=== PATIENT | male | born 1965 | race Caucasian/White ===

== ENCOUNTER 2018-05-22 09:14 | Day surgery (SDC) | payer OTHER ==
[~2018-05-22] VITALS: Ht 177.8 cm; Wt 125.2 kg
[~2018-05-22 09:14] MED LIST: ALLOPURINOL100 MG PO; LEVOTHYROXINE112 MCG PO; LEVOTHYROXINE125 MCG PO; LIPITOR10 MG PO; LOSARTAN-HCTZ1 EACH PO; METFORMIN HCL500 MG PO; METOPROLOL TART50 MG PO; PERCOCET 5-3251 EACH PO; TOPROL XL100 MG PO
--- NOTE | 2018-05-22 10:44 | NUR ---
05/22/18 1044 Ashlee Braswell 1041 PT ARRIVED IN PACU SLEEPY WITH NO C/O'S. ABD SOFT.
--- NOTE | 2018-05-22 11:53 | OR ---
[facility] [address] [place], [place] [address] Signed DATE OF OPERATION: 05/22/2018 SURGEON: Maria A Palmer MD PREOPERATIVE DIAGNOSES: 1. Screening. 2. Mother with diverticulitis requiring resection. POSTOPERATIVE DIAGNOSES: 1. Moderate left-sided diverticulosis. 2. 4 mm polyp at mid right colon. 3. 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 PROCEDURES: Colonoscopy with hot biopsy and random cold biopsies. ESTIMATED BLOOD LOSS: None. INDICATIONS: Tanya is a 52-year-old gentleman, who has been to his primary care provider. He was asked to see me for a routine screening colonoscopy at age 52. He said he has no lower GI complaints. He said his family has no history of colon cancer or polyps. He describes his mother having severe sigmoid diverticular disease requiring an elective Rachel's resection and in about a year later got reversed. In the office, I gave Tanya a pamphlet on colonoscopy and we looked at that together along with the risks and benefits. He understands there is risk including, but not limited to gas, bloating, crampy abdominal pain, bleeding, perforation, requiring surgery, and missed diagnosis. We also discussed the need for IV conscious sedation. He had expressed understanding and wished to proceed. PROCEDURE NOTE: Tanya was taken into our endoscopy suite and placed in the left lateral decubitus position. He was given a total of 7 mg of Versed and 150 mcg of fentanyl to cover the case. A digital rectal exam was performed and this was unremarkable. He had good sphincter tone. The bottom of his prostate was a little indurated, but otherwise unremarkable. The adult colonoscope was introduced and advanced all the way around into the cecum under direct visualization of camera without difficulty. His prep was good. The scope was slowly withdrawn. We took pictures throughout for photodocumentation. He had a single 4 mm polyp in his mid right colon. It was easily removed and destroyed Electronically Signed By: MARIA A PALMER MD 05/22/18 1153 PATIENT NAME: TANYA SANCHEZ OPERATIVE REPORT DATE OF : 69 REPORT #: [id number] PHYSICIAN: MARIA A PALMER MD PCP: REGINALD POTTER DO REPORT IS CONFIDENTIAL AND NOT TO BE RELEASED WITHOUT AUTHORIZATION [facility] [address] [place], [place] [address] Signed completely with hot biopsy forceps. We thought he might have just some mild tiger striping in the colon, so we went ahead and took a couple of random cold biopsies to rule out melanosis coli. Also, he does have moderate left-sided diverticulosis. They are moderate size, moderate number, and scattered about. The rectum itself was unremarkable. Upon retroflexion of scope, he really has no additional pathology noted above the anal canal. After this, the gas was suctioned out and the colonoscope removed. Tanya tolerated the procedure quite well. RECOMMENDATIONS: I will see Tanya back in my office in 7 to 14 days to review his results. Maria A Palmer MD ALB/MODL /[id number] cc: MD Reginald Pena DO Copies: MARIA A PALMER MD, ARIAN DO ~ Electronically Signed By: MARIA A PALMER MD 05/22/18 1153 PATIENT NAME: TANYA SANCHEZ OPERATIVE REPORT DATE OF : 69 REPORT #: [id number] PHYSICIAN: MARIA A PALMER MD PCP: REGINALD POTTER DO REPORT IS CONFIDENTIAL AND NOT TO BE RELEASED WITHOUT AUTHORIZATION
== END 2018-05-22 11:25 | disposition home or self-care (01) ==
LOC: DS 09:14 → OPS 09:14 → DS 10:15 → OPS 10:15
PROC: 0DBK8ZZ Excision of Ascending Colon, Via Natural or Artificial Opening Endoscopic (ICD-10-PCS; principal; 2018-05-22)
PROC: 0DBE8ZX Excision of Large Intestine, Via Natural or Artificial Opening Endoscopic, Diagnostic (ICD-10-PCS; 2018-05-22)
DX: Z12.11 Encounter for screening for malignant neoplasm of colon (principal); D12.2 Benign neoplasm of ascending colon; K63.89 Other specified diseases of intestine; K57.30 Diverticulosis of large intestine without perforation or abscess without bleeding; I25.2 Old myocardial infarction; I10 Essential (primary) hypertension; E78.5 Hyperlipidemia, unspecified; E03.9 Hypothyroidism, unspecified; E11.9 Type 2 diabetes mellitus without complications; E66.9 Obesity, unspecified; Z79.899 Other long term (current) drug therapy; Z79.84 Long term (current) use of oral hypoglycemic drugs; Z88.8 Allergy status to other drugs, medicaments and biological substances; Z88.1 Allergy status to other antibiotic agents; Z88.0 Allergy status to penicillin; Z83.71 Family history of colonic polyps; Z68.39 Body mass index [BMI] 39.0-39.9, adult
CPT/HCPCS: J2250; J3010; J7120

== ENCOUNTER 2022-04-05 08:53 | Day surgery (SDC) | payer OTHER ==
[~2022-04-05] VITALS: Ht 175.3 cm; Wt 120.5 kg
[~2022-04-05 08:53] MED LIST changes: +LEVOFLOXACIN500 MG PO
[2022-04-05] MEDS ORDERED: METHIMAZOLE5 MG PO (09:10)
[2022-04-05] MEDS ORDERED: TRULICITY0.75 MG/0. SQ (09:10)
--- NOTE | 2022-04-05 14:37 | NUR ---
04/05/22 1437 Kathrin Beltre 1422-PATIENT ARRIVED TO PACU ON 6L MASK RR EVEN. PATIENT REACTIVE TO VERBAL STIMULI OPENING EYES HOB ELEVATED. PATIENT DENIES MPAIN OR NAUSEA. GINGER DRAIN TO NECK DRESSING INTACT. PATIENT REMAINS VERY SWEATY COLD AIR VIA SONYA PAWS APPLIED. 1433-DISCUSSED WITH DR BACH OF GINGER DRAIN NOT HOLDING SUCTION. ORDER TO PLACE TO WALL SUCTION. GINGER DRAIN CONNECTED TO MEDIUM CONTINUOUS WALL SUCTION. SANGUINOUS DRAINAGE.
--- NOTE | 2022-04-05 15:41 | NUR ---
PATIENT BROUGHT TO MED SURG FLOOR FROM PACU. PATIENT RESTING IN BED, HEAD ELEVATED. STATES PAIN 3/10. PT HAS 1 GINGER DRAIN HOOKED UP TO SUCTION. FAMILY IN ROOM WITH PATIENT. WASHCLOTH APPLIED TO FORHEAD. SCD RUNNING. ALANIZ CATHETER IN PLACE. NO SWELLING, SLIGHT DRAINAGE ON LEFT AND RIGHT SIDE OF DRESSING.DENIES SOB.
--- NOTE | 2022-04-05 15:57 | NUR ---
PATIENT GIVEN ICE WATER AND ICE CHIPS. LR WAS HOOKED UP TO IV PUMP AT THE RATE OF 85.
--- NOTE | 2022-04-05 16:40 | NUR ---
Pt resting quietly with hob elevated and drain in center of neck. , Babs at bedside. She states they live in a modular home with few steps. No issues for pt to get in or out of the home. Pt does not use any DME. Babs works from home, but will not be working the next few days and will assist pt as needed. Plan is for pt to dc to home when medically cleared by . Pt is awake during our conversation and denies needs. States his neck and chest are cold. Warm blanket given.
--- NOTE | 2022-04-05 16:57 | NUR ---
VS COMPLETE AND STABLE. AT BEDSIDE. PT DENIES CONCERNS. DRAIN REMAINS TO SUCTION WITH SMALL AIR LEAK NOTED BUT STILL GOOD SUCTION AT BALL.
--- NOTE | 2022-04-05 17:46 | NUR ---
DR. BACH IN TO SEE PATIENT. VITALS ARE WITHIN RANGE. PATIENT HAS HAD 300ML OF CLEAR, BUT DOES NOT FEEL THAT HE COULD TAKE PILLS WITHOUT GETTING NAUSEATED. PLAN TO LEAVE BP MEDS ON THE EMAR, IF NEEDED LATER TONIGHT...DR. BACH IS AWARE. PATIENT REPORTS HIS PAIN IS 1-2 AND DOES NOT REQUIRE PAIN MEDICATIONS AT THIS TIME. PATIENT IS 96-99% ON ROOM AIR. FAMILY IS AT BEDSIDE.
--- NOTE | 2022-04-05 19:20 | NUR ---
HANDOFF REPORT RECEIVED FROM DAY SHIFT RN. PT RESTING IN BED, FAMILY AT BEDSIDE.
--- NOTE | 2022-04-05 20:15 | NUR ---
PT RESTING IN BED. PT ON ROOM AIR, DENIES SOB, LUNG SOUNDS CLEAR. PT DENIES DIFFICULTY SWALLOWING OR NECK TIGHTNESS, STATES THROAT IS A BIT SORE, DISCUSSED WARM BEVERAGES. NECK WITH MIDLINE INCISION, SMALL AMOUNT OF SHADOWING, GINGER DRAIN WITH 25 ML SEROSANGUINOUS DRAINAGE, HOLDING SUCTION AT THIS TIME, WILL MONITOR FOR AIR LEAK. PT DENIES NAUSEA, BOWEL TONES ACTIVE, BLOOD GLUCOSE 134, SS INSULIN HELD. CMS INTACT, WITHOUT EDEMA, DENIES CALF PAIN, SCDS IN PLACE. PT WITH ALANIZ DRAINING YELLOW URINE. DISCUSSED PLAN OF CARE FOR THE EVENING. PT DENIES OTHER NEEDS AT THIS TIME.
--- NOTE | 2022-04-05 21:42 | NUR ---
GINGER BULB PLACED BACK TO WALL SUCTION IT WAS NOT FULLY COMPRESSED. PT STATES PAIN IS IMPROVING, DENIES NEED FOR ADDITIONAL PAIN MEDICATION.
--- NOTE | 2022-04-05 23:23 | NUR ---
PT SLEEPING, LEFT UNDISTURBED. CONTINUOUS PULSE OX IN PLACE, O2 SATS 94%.
--- NOTE | 2022-04-06 00:10 | NUR ---
PT SLEEPING, LEFT UNDISTURBED. O2 SATS 96% ON ROOM AIR. GINGER DRAIN SUCTION ASSESSED, TUBING TO WALL SUCTION REPOSITIONED TO OBTAIN FULL COMPRESSION OF DRAIN. NEW BAG OF LR INFUSING AT 85 ML/HR.
--- NOTE | 2022-04-06 02:05 | NUR ---
REPORT RECEIVED FROM NORMA FLORES, ASSUMED CARE OF pt. CPOX IN PLACE. pt ON RA. CLOSE VIEW FROM NURSES STATION.
--- NOTE | 2022-04-06 02:39 | NUR ---
pt SLEEPING, AWAKENS TO VOICE. VSS. SPO2 WNL ON RA. pt DENIES SOB, NO DIFFICULTY SWALLOWING. ASSESSMENT COMPLETE. DRESSING CDI, SMALL SHADOWING ON ACTICOAT. GINGER DRAIN STRIPPED, EMPTIED, 30 MLS SS FLUID. GINGER TO WALL SUCTION. WATER REFILLED. IVF INFUSING WNL. CALL LIGHT IN REACH.
--- NOTE | 2022-04-06 05:30 | NUR ---
pt AWAKE FOR LAB DRAW. VSS. GINGER DRAIN TO WALL SUCTION. pt ASSISTED OUT OF BED, UP TO RECLINER. ALANIZ EMPTIED, DRAINING CLEAR URINE. IVF INFUSING WNL. WATER PROVIDED. CALL LIGHT AND PERSONAL SUPPLIES IN REACH. CPOX ON.
--- NOTE | 2022-04-06 06:44 | NUR ---
PHONE CALL TO MD, TELEPHONE ORDER TO DC ALANIZ CATHETER.
--- NOTE | 2022-04-06 06:48 | NUR ---
pt UP IN CHAIR. CORBIN PIKE WNMilo. URINAL PROVIDED TO pt. COFFEE AND WATER IN REACH.
--- NOTE | 2022-04-06 07:00 | NUR ---
report from Jania griffin, pt sleeping with call light in reach.
--- NOTE | 2022-04-06 07:30 | NUR ---
pt in chair. student nurse and i harpooner in room. bs complete by student nurse. no needs at this time. call light within reach
--- NOTE | 2022-04-06 08:26 | NUR ---
PT UP IN CHAIR - EATING WELL, DUE TO VOID, IN ROOM, GINGER TO SUCTION - 10 ML OF SEROUS DRAINAGE OUT - NO NUMBNESS OR TINGLING NOTED PAIN WNL. PT HOPES TO DC HOME TODAY.
[2022-04-06] MEDS ORDERED: ACETAMINOPHEN500 MG PO (09:12)
[2022-04-06] MEDS ORDERED: CALCIUM CARBON200 MG PO (09:13)
[2022-04-06] MEDS ORDERED: LEVOTHYROXINE150 MCG PO (09:13)
--- NOTE | 2022-04-06 10:34 | NUR ---
PATIENT IS SITTING UP AT BEDSIDE.PATIENT'S DISCHARGE HAS NOT CHANGED. PATIENT WILL GO HOME WITH HIS .NO DME NEEDED FOR DISCHARGE.
--- NOTE | 2022-04-06 10:34 | NUR ---
PT ALERT, ORIENTED AND VISITING WITH HIS RORO. PT EXPECTS TO DC VERY SHORTLY, FEELS GOOD ABOUT CARE HE HAS RECEIVED. DANIEL SPRING AND LEONARDO.
--- NOTE | 2022-04-07 15:39 | OR ---
[facility] [address] [place] [place] [address] Signed DATE OF OPERATION: 04/05/2022 SURGEON: Jayden Bach MD PREOPERATIVE DIAGNOSES: 1. 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 2. Hypothyroidism; elevated antinuclear antibody for thyroid. POSTOPERATIVE DIAGNOSES: 1. 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 2. Hypothyroidism; elevated antinuclear antibody for thyroid. PROCEDURES: 1. Total thyroidectomy, prolonged complicated and difficult. 2. Central neck lymph node dissection. ANESTHESIA: General endotracheal, Zana Steen, MOLD CUTTING MACHINE OPERATOR and drain 7 mm Yahir. INDICATION: This is a 56-year-old morbidly obese white man is a patient of Dr. Reginald Potter. He was found incidentally on CT scan to have a rather large posterior thyroid mass at least 3 cm and variably reported up to 5 cm in size. There was calcification with punctate changes. He underwent evaluation by Dr. Yaniv Cason and subsequent fine-needle aspiration biopsy by a radiologist in [place] confirming a [place] category 5 lesion. The patient has been on Synthroid medication for presumed hypothyroidism and was found to have a markedly depressed TSH and normal and high normal T4 and T3 levels recently. He was withdrawn from medication which allowed for normalization of his TSH and T4 levels and he is now to undergo total thyroidectomy based on the size of the thyroid mass. The risk of bleeding, infection, recurrent laryngeal nerve injury, loss of parathyroid glands ( which would not be intended of course) and planned additional treatment wer all reviewed with the patient and his family. Additionally, it is noted that the patient is quite significantly obese and has a very large neck for which operation may be challenging. He understands these risks and wished to proceed. FINDINGS: The patient had very thickened muscles including platysma and strap muscles. Division Electronically Signed By: JAYDEN BACH MD 04/07/22 1539 PATIENT NAME: TANYA SANCHEZ OPERATIVE REPORT DATE OF : 69 REPORT #: [id number] PHYSICIAN: JAYDEN BACH MD PCP: REGINALD POTTER DO REPORT IS CONFIDENTIAL AND NOT TO BE RELEASED WITHOUT AUTHORIZATION [facility] [address] [place], [place] [address] Signed of the right sided strap muscles ( sterno hyoid and sterno thyroid) inferiorly was required for access to the right thyroid lobe as it was broad, deep and quite dense. It had calcific changes within the substance confirmed by CT scan originally performed previously. Total thyroidectomy was accomplished. There appeared to be a Delphian lymph node which was excised in continuity with the pyramidal lobe of the thyroid. There were small fatty areas of lymph tissue which were excised as a central neck dissection essentially including down to the area of the thymus. Once excised, the right recurrent laryngeal nerve was easily identified and had been unharmed. The inferior parathyroid gland was noted to be intact and is uncertain regarding the right upper pole parathyroid gland. The left side showed parathyroid tissue inferiorly that was preserved as well. Although the index lesion was on the right side, the left lobe was similarly somewhat nodular and densely fibrotic. The operation was prolonged, complicated, and difficult taking nearly 4 hours in total, but was accomplished safely. Blood loss was estimated at 100 mL minimum. DESCRIPTION OF PROCEDURE: The patient was brought to the operating room, given a general endotracheal anesthetic. Sabillon catheter was placed. Body positioning was manipulated with a shoulder roll allowing for mild neck extension. Given his body habitus, which was quite obese, arms were placed at the side with specialized sleds. The neck was palpated and no specific nodule was noted given the thickness of his skin. The neck was prepared with a chlorhexidine solution and draped sterilely. A natural skin crease was identified and an area extending to the midportion of sternocleidomastoid muscle was outlined. A relatively generous incision was made from the medial aspect of the sternocleidomastoid muscle bilaterally. Dissection was carried through the subcutaneous tissue and platysmal layer with electrocautery. The platysmal layer was surprisingly thickened. Given his obesity, additional subcutaneous tissue was divided. Superior and inferior flaps were developed with blunt and electrocautery dissection. Gelpi retractors were placed. The midline strap muscles were impressively thickened as well. The avascular plane between the sternohyoid muscles was identified and incised extending the incision superiorly and inferiorly. The sternohyoid and sternothyroid muscles were with blunt and sharp dissection on the right side. The underlying thyroid was palpated and was rock hard, almost calcified and clearly malignant in its texture. Blunt dissection laterally was undertaken and the thyroid was impressively wide and at first, uncertain if may be fixed to the lateral structures or posteriorly, but ultimately found actually to be free-- just completely fibrotic and calcific. It was clear that division of the strap muscles on the right side would be required to allow for adequate exposure. In the inferior aspect of the sternohyoid, the medial margin was marked with a suture and muscle was divided. The underlying sternothyroid muscle was similarly divided. This provided much better access to the right lobe. Using a combination of blunt, sharp, and electrocautery dissection, the lateral attachments were freed. Digital Electronically Signed By: JAYDEN BACH MD 04/07/22 1539 PATIENT NAME: TANYA SANCHEZ OPERATIVE REPORT DATE OF : 69 REPORT #: [id number] PHYSICIAN: JAYDEN BACH MD PCP: REGINALD POTTER DO REPORT IS CONFIDENTIAL AND NOT TO BE RELEASED WITHOUT AUTHORIZATION [facility] [address] [place], [place] [address] Signed examination showed the thyroid to be very firm and fibrotic and extending posteriorly. Sequential application of 4-0 silk ties and occasional small clips to blood vessels was undertaken laterally subsequently to the upper pole and followed by the lower pole. Meticulous and rather challenging dissection was undertaken given the fibrotic nature of the thyroid gland and the mass itself. Eventually, the thyroid could be more fully rotated to the midline, identifying the posterior elements. An inferior parathyroid gland was identified and preserved. Small blood vessels in the deep sections were secured with 4-0 silk sutures so as to avoid mass ligature and avoid cautery in this area that would be hazardous to the recurrent laryngeal nerve. Ultimately, the right thyroid lobe could be rotated to the midline. The ligament of Schmid was divided with electrocautery revealing ultimately the avascular pretracheal space. There appeared to be a Delphian node associated with a pyramidal lobe. This was dissected free as well. The right side of the neck was packed with gauze and attention turned towards the left side. With similar technique, the strap muscles were from the overlying left thyroid lobe. To my surprise, the left thyroid lobe was impressively dense and fibrotic and with nodularity as well. It was not of the same size as the right side and therefore the strap muscles did not require division. With similar technique, the superior and inferior polar vessels were secured often with small clips and generally with 4-0 silk ties. The posterior elements laterally were free avoiding area concordant to the recurrent laryngeal nerve on the left. Ultimately, the entire specimen was excised by freeing the left remnant from the trachea itself. Photographs were taken. Irrigation was undertaken revealing the right recurrent laryngeal nerve to be intact and with good hemostasis. Laterally on the left, similar identification of parathyroid tissue inferiorly was undertaken. The recurrent nerve on the left side was not identified specifically, however. There appeared to be fatty tissue in the central inferior aspect, this was dissected free with meticulous care using blunt electrocautery dissection and application of small clips as needed for blood vessels. Yet I am confident that there will be some lymph nodes within this area. Similar dissection was taken superiorly in the midline and laterally where appropriate. Irrigation was undertaken. Plans were made for closure. The strap muscles were reapproximated with interrupted 2-0 Vicryl suture through the central portion of the wound. A 7 mm flat Yahir drain was draped across the trachea to allow drainage of both left and right sides of the neck. The midline strap muscles were reapproximated with interrupted 2-0 Vicryl. Not mentioned previously was the application of aerosolized Tisseel (fibrin glue) to the posterior aspect of the operative bed so as to additionally secure hemostasis. The platysmal layer was reapproximated with interrupted 2-0 Vicryl and skin closed with interrupted 4-0 Vicryl, bringing the drain out the midportion of the incision. The drain was attached to the skin with a 2-0 nylon suture. It was attached to bulb suction. Electronically Signed By: JAYDEN BACH MD 04/07/22 1539 PATIENT NAME: TANYA SANCHEZ OPERATIVE REPORT DATE OF : 69 REPORT #: [id number] PHYSICIAN: JAYDEN BACH MD PCP: REGINALD POTTER DO REPORT IS CONFIDENTIAL AND NOT TO BE RELEASED WITHOUT AUTHORIZATION [address] [address] Signed The operation was prolonged, complicated, and difficult lasting 4 hours, but accomplished with safety and minimizing blood loss, which in aggregate was at least 100 mL. Steri-Strips were applied to the wound as was an Acticoat dressing. The patient was ultimately extubated and transferred to recovery room in good condition having suffered no complication. He appeared to have no airway issue or other particular problems at conclusion of procedure. MD MUKUL [place]/SERENAL /[id number] cc: MD Reginald Parks DO Copies: YANIV CASON MD, ARIAN DO ~ Electronically Signed By: JAYDEN BACH MD 04/07/22 1539 PATIENT NAME: TANYA SANCHEZ OPERATIVE REPORT DATE OF : 69 REPORT #: [id number] PHYSICIAN: JAYDEN BACH MD PCP: REGINALD POTTER DO REPORT IS CONFIDENTIAL AND NOT TO BE RELEASED WITHOUT AUTHORIZATION
--- NOTE | 2022-04-08 17:38 | PATH ---
[facility] [address] [place] [address] Signed SPECIMEN(S): A MASS OF THYROID GLAND SPECIMEN(S): B PARATHYROIDAL LYMPH TISSUE BIOPSY SPECIMEN SOURCE: A. MASS OF THYROID GLAND B. PARATHYROIDAL LYMPH TISSUE BIOPSY . CLINICAL HISTORY: Mass of thyroid; hypothyroidism. FINAL PATHOLOGIC DIAGNOSIS: A. Mass of thyroid gland: - Papillary thyroid carcinoma with the following features: - Histologic-type: Follicular and Warthin-like. - Tumor focality: Tumor diffusely infiltrates the left and right thyroid and isthmus. - Dominant tumor: Right lobe. - Tumor size: >5 cm. - Histologic type: Papillary thyroid carcinoma. - Variant: Predominantly follicular with focal Warthin's type features. - Surgical margin: Tumor is present at an anterior surgical margin in the isthmus region. - Tumor capsule: None. - Angioinvasion: Absent. - Lymphatic invasion: Absent. - Perineural invasion: Present. - Extrathyroidal extension: Not definitely identified. - Second tumor: Left thyroid. - Tumor size: 4.8 x 3.4 x 2.5 cm. - Histologic type: Papillary thyroid carcinoma. - Variant: Predominantly follicular and focal Warthin's type features. - Surgical margin: Tumor is present at an anterior surgical margin in the isthmus region. - Tumor capsule: None. - Angioinvasion: Absent. - Lymphatic invasion: Absent. - Perineural invasion: Not identified. . - Extrathyroidal extension: Not definitely identified. - Additional findings: Lymphocytic / Sanju's thyroiditis, benign PATIENT NAME: TANYA SANCHEZ PATHOLOGY DATE OF : 69 REPORT #: [id number] PHYSICIAN: CARMELAMSC PATHOLOGY PCP: ARABELLA POTTER DO REPORT IS CONFIDENTIAL AND NOT TO BE RELEASED WITHOUT AUTHORIZATION [facility] [address] [place], [place] [address] Signed parathyroid tissue. - Specimen integrity: Intact. - Lymph nodes: - Number of lymph nodes examined: 3. - Number of lymph nodes involved: 0. - Surgical pathology stage: pT3, pNX, pMX. B. Parathyroid lymph tissue biopsy: - Benign parathyroid. - Two lymph nodes, negative for metastatic carcinoma. COMMENT: As part of [facility] Quality Improvement Program, this case was reviewed by another member of our pathology staff. JNELLA:AMADO:rosaura:C1NR MICROSCOPIC EXAMINATION: Histologic sections of all submitted blocks are examined by light microscopy. These findings, together with the gross examination, support the pathologic diagnosis. Immunostains are performed with appropriate controls and show the following: Block (A1): - Synaptophysin: Negative in area of concern. - Chromogranin: Negative in area of concern. - CK19: Positive in area of concern. - HBME-1: Positive in area of concern. Block (A4): - TTF-1: Positive at the surgical margin. Block (A6): - CK19: Positive. - HBME-1: Positive GROSS DESCRIPTION: A. The specimen, labeled and designated "Kwame Sanchez," and designated on the requisition "total thyroid," is received in formalin and consists of a 56 g total thyroid that has an overall dimension of 9.4 x 5.7 x 4.1 cm. The external surface is red and focally shaggy. No parathyroid or lymph node tissue is grossly identified. The left lobe is 4.8 x 3.4 x 2.5 cm. The isthmus is 1.9 x 1.7 x 0.7 cm. The right lobe is 5.2 x 4.5 x 3.5 cm. The specimen is inked as follows: Anterior-superior blue, anterior-inferior green, and posterior-black. The specimen is serially sectioned from left to right revealing a pale pink, marbled cut surface. The right lobe displays an PATIENT NAME: TANYA SANCHEZ RAZ PATHOLOGY DATE OF : 69 REPORT #: [id number] PHYSICIAN: SACHA PATHOLOGY PCP: ARABELLA POTTER DO REPORT IS CONFIDENTIAL AND NOT TO BE RELEASED WITHOUT AUTHORIZATION [facility] [address] [place], [place] [address] Signed ill-defined, pink-white focally, calcified and fibrous area that is 3.9 x 2.1 x 1.9 cm that is 0.3 cm from the closest soft tissue resection margin. [employer] sections are submitted in nine cassettes. Cassette Summary: (A1-A3) left thyroid lobe (A4) isthmus (entirely submitted) (A5-A7) cross-section of the fibrous area within the right thyroid lobe (A8) fibrous area to soft tissue resection margin, perpendicular (A9) uninvolved right thyroid lobe B. The specimen, labeled and designated "[place], K, and designated on the requisition "parathyroid tissue," is received in formalin and consists of 4.5 x 3.6 x 0.8 cm aggregate of yellow-flores, multilobulated adipose tissue. Several of the tissue fragments are encased in a pink-red membranous tissue. The tissue has a combined weight of 3.17 g. The specimen is entirely submitted in (B1-B3). FB (under the direct supervision of a pathologist) The Gross Description was prepared using a voice recognition system. The report was reviewed for accuracy; however, sound-alike word errors, addition and/or deletions may occur. If there is any question about this report, please contact Client Services. PERFORMING LABORATORY: The technical component was performed by [facility], [address] [place] [id number] (CLIA# [id number]). The professional interpretation was performed by [facility], [facility], [address] [address] (CLIA#: [id number]). Diagnostician: Juarez Smith MD Pathologist Electronically Signed 04/08/2022 Copies: ~ PATIENT NAME: TANYA SANCHEZ PATHOLOGY DATE OF : 69 REPORT #: [id number] PHYSICIAN: SACHA PATHOLOGY PCP: ARABELLA POTTER DO REPORT IS CONFIDENTIAL AND NOT TO BE RELEASED WITHOUT AUTHORIZATION
== END 2022-04-06 10:48 | disposition home or self-care (01) ==
LOC: DS 08:53 → MS 15:24 → DS 04-06 10:48
PROVIDERS: ATTEND Surgery
PROC: 07B20ZZ Excision of Left Neck Lymphatic, Open Approach (ICD-10-PCS; 2022-04-05)
PROC: 07B10ZZ Excision of Right Neck Lymphatic, Open Approach (ICD-10-PCS; 2022-04-05)
PROC: 0GTK0ZZ Resection of Thyroid Gland, Open Approach (ICD-10-PCS; principal; 2022-04-05 10:45)
DX: C73 Malignant neoplasm of thyroid gland (principal); E03.9 Hypothyroidism, unspecified; E66.01 Morbid (severe) obesity due to excess calories; Z68.38 Body mass index [BMI] 38.0-38.9, adult; E11.9 Type 2 diabetes mellitus without complications; I10 Essential (primary) hypertension
CPT/HCPCS: 36415; 80053; 85025; A9270; J0131; J0690; J1100; J1885; J2250; J2405; J2704; J3010; J7121